=== PATIENT | female | born 1960 | race Caucasian/White ===

== ENCOUNTER 2025-01-04 10:14 | Emergency (ER) | payer OTHER ==
[2025-01-04 11:06] LABS: Absolute Lymphocytes (CBC) 2.9 K/uL (0.7-4.9); Hematocrit 39.4 % (36.0-45.0); Hemoglobin 13.0 g/dL (12.0-15.0); MCH 29.7 pg (27.0-35.0); MCHC 33.1 g/dL (32.0-36.0); MCV 89.7 fL (80-100); MPV 7.6 fL (7.6-11.3); Nucleated RBC Absolute Count 0.0 (0-0); Nucleated Red Blood Cells % 0.1 % (0-0); RBC Red Blood Cell Count 4.39 M/uL (3.86-4.86); Sqamous Epithelial <5 /HPF (None Seen); Urine Crystals Unidentified Few /HPF (None Seen); Urine Culture Reflex Order NOT NEEDED; Urine Microscopic Reflex YN ORDER UMIC; Urine WBC Clump Rare /HPF (None Seen); Urine Yeast (Budding) Trace /HPF (None Seen); White Blood Count 9.10 thou/uL (4.3-10.9)
[2025-01-04 11:24] LABS: ALT/SGPT 28.0 U/L (13-56); AST/SGOT 16.0 U/L (15-37); Albumin 3.6 g/dL (3.4-5.0); Alkaline Phosphatase 76.0 U/L (45-117); Anion Gap 7.6 mEq/L (5.0-15.0); BUN Blood Urea Nitrogen 14.0 mg/dL (7-18); Bilirubin Indirect, Calculated 0.4 mg/dL (0.2-0.8); Globulin 3.6 g/dL (2.3-3.5); Glucose Level 105.0 mg/dL (74-106); Potassium 3.6 mEq/L (3.5-5.1)
[2025-01-04 11:25] LABS: Albumin/Globulin Ratio 1.0 (1.1-1.8); Lipase 32.0 U/L (13-75); Magnesium 2.1 mg/dL (1.6-2.4); NT PRO-BNP 73.0 pg/mL (<125); Troponin High Sensitivity 3.3 pg/mL (<58.9)
--- NOTE | 2025-01-04 11:56 | RAD REPORT ---
EXAMINATION: CT ABDOMEN AND PELVIS WITH CONTRAST CLINICAL INDICATION: Abdominal pain TECHNIQUE: CT abdomen and pelvis was performed, after the administration of 100 cc Isovue-300.. Sagit lory and coronal reconstructions were obtained. One or more of the following dose reduction techniques were used: Automated exposure control, adjustment of the mA and kV according to patient si ze, and iterative reconstruction. Unless otherwise specified, incidental findings do not require dedicated imaging follow-up. [id number]. Oral contrast was not given which limits evaluation of bowel and appendix. COMPARISON: .None FINDINGS: Cholecystectomy Splenic granulomata. The liver, pancreas and adrenals unremarkable 7 mm calculus left kidney. No hydronephrosis. Small left renal cyst. Tiny right renal calculus. No hydronephrosis. Tubal ligation clips. No adnexal mass. No evidence of diverticulitis.. Moderate amount of stool throughout the colon Small umbilical hernia : IMPRESSION: Nonobstructing renal calculi. Moderate amount stool throughout the colon
--- NOTE | 2025-01-04 12:28 | ER ---
Nurse's Notes [facility] Name: Lilli Webster Age: 64 yrs Sex: Female : 1960 Arrival Date: 01/04/2025 Time: 10:14 Bed 18 Private MD: Diagnosis: Other abdominal pain Presentation: 01/04 10:33 Chief complaint: Patient states: starting Saturday she has had RLQ and LLQ pain, me1 intermittent nausea, episodes of sob with exertion, generalized body aches, denies fever. Coronavirus screen: Vaccine status: Patient reports receiving the 2nd dose of the covid vaccine. Ebola Screen: No symptoms or risks identified at this time. Initial Sepsis Screen: Does the patient meet any 2 criteria? No. Patient's initial sepsis screen is negative. Does the patient have a suspected source of infection? No. Patient's initial sepsis screen is negative. Risk Assessment: Do you want to hurt yourself or someone else? Patient reports no desire to harm self or others. Onset of symptoms was January 02, 2025. 10:33 Method Of Arrival: Ambulatory me1 10:33 Acuity: PADMA 3 me1 Historical: - Allergies: 10:35 Sulfa (Sulfonamide Antibiotics); me1 - PMHx: 10:35 hypotension; Hypercholesterolemia; Hypothyroidism; irregular heartbeat; me1 - PSHx: 10:35 Appendectomy; Tonsillectomy; Ligation of fallopian tube; me1 - Immunization history:: Adult Immunizations up to date. - Infectious Disease History:: Denies. - Social history:: Smoking status: Patient denies any tobacco usage or history of. Screenin:06 [facility] ED Fall Risk Assessment (Adult) History of falling in the last 3 months, ar8 including since admission No falls in past 3 months (0 pts) Confusion or Disorientation No (0 pts) Intoxicated or Sedated No (0 pts) Impaired Gait No (0 pts) Mobility Assist Device Used No (0 pt) Altered Elimination No (0 pt) Score/Fall Risk Level 0 - 2 = Low Risk Oriented to surroundings, Maintained a safe environment. Abuse screen: Denies threats or abuse. Nutritional screening: No deficits noted. Tuberculosis screening: No symptoms or risk factors identified. Assessment: 10:45 General: Appears in no apparent distress. Behavior is calm, cooperative. ar8 10:45 Pain: Complains of pain in right lower quadrant and left lower quadrant. Neuro: Level ar8 of Consciousness is awake, alert, obeys commands, Oriented to person, place, time, situation. Cardiovascular: Patient's skin is warm and dry. Respiratory: Airway is patent Respiratory effort is even, unlabored, Respiratory pattern is regular, symmetrical. GI: Abdomen is flat, Bowel sounds present X 4 quads. Abd is soft Abdomen is tender to palpation in right lower quadrant and left lower quadrant Reports lower abdominal pain, nausea. : No signs and/or symptoms were reported regarding the genitourinary system. EENT: No signs and/or symptoms were reported regarding the EENT system. Derm: Skin is intact, Skin is dry, Skin is pink, warm \T\ dry. Skin temperature is warm. Vital Signs: 10:33 BP 121 / 61; Pulse 76; Resp 18; Temp 98.2; Pulse Ox 96% ; Weight 77.11 kg; Height 5 ft. me1 6 in. ; Pain 6/10; 11:06 BP 120 / 69; Pulse 65; Resp 16; Pulse Ox 94% on R/A; ar8 12:00 BP 105 / 67; Pulse 59; Resp 17; Pulse Ox 95% ; ar8 12:44 BP 99 / 57; Pulse 58; Resp 16; Pulse Ox 95% on R/A; Pain 4/10; ar8 10:33 Body Mass Index 27.44 (77.11 kg, 167.64 cm) me1 10:33 Pain Scale: Adult me1 12:44 Pain Scale: Adult ar8 ED Course: 10:15 Patient arrived in ED. mr 10:16 Kathleen Houston MD is Attending Physician. sp3 10:35 Triage completed. me1 10:35 Arm band placed on Patient placed in an exam room. me1 10:42 Santino Cavazos, SHAAN is Primary Nurse. ar8 10:45 Bed in low position. Call light in reach. Side rails up X2. ar8 10:45 Provided Education on: plan of care, diagnostics and estimated wait time. Client placed ar8 on continuous cardiac and pulse oximetry monitoring. NIBP monitoring applied. 10:48 No provider procedures requiring assistance completed. Inserted saline lock: 22 gauge ar8 in left antecubital area, using aseptic technique. Blood collected. Flushed with 10 mL NS. 10:48 EKG done, by ED staff, reviewed by Kathleen Huoston MD. ar8 10:[address] via wheelchair. ar8 11:04 CT Abd/Pelvis - IV Contrast Only In Process Unspecified. EDMS 11:04 Patient moved back from CT. ar8 12:44 IV discontinued, intact, bleeding controlled, No redness/swelling at site. Pressure ar8 dressing applied. Administered Medications: No medications were administered Medication: 11:06 VIS not applicable for this client. ar8 Outcome: 12:27 Discharge ordered by . sp3 12:44 Discharged to home ambulatory, ar8 12:44 Condition: stable 12:44 Discharge instructions given to patient, Instructed on discharge instructions, follow up and referral plans. Demonstrated understanding of instructions, follow-up care, 12:50 Patient left the ED. ar8 Signatures: Dispatcher [employer] EDLA Roxanne Jones, Reg Reg Kathleen Talavera MD MD sp3 Tiara Pollock, SHAAN RN me1 Santino Cavazos RN RN ar8
--- NOTE | 2025-01-04 12:28 | EDPHYS ---
Physician Documentation [facility] Name: Lilli Webster Age: 64 yrs Sex: Female : 1960 Arrival Date: 01/04/2025 Time: 10:14 Bed 18 Private MD: ED Physician Kathleen Houston HPI: 01/04 10:47 This 64 yrs old Female presents to ER via Ambulatory with complaints of Abdominal Pain, sp3 Back Pain, Weakness. 10:47 64-year-old female with history of hyperlipidemia, hypothyroidism presents with lower sp3 abdominal pain over the last 2 to 3 days. She also had some crab legs in [place] which may have made it worse. Pain did precede that dinner. She also states she has had some back spasms and overall just feels weak. 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 She feels like she is severely fatigued. She denies any trauma, headache, fever, URI symptoms, chest pain, shortness of breath, diarrhea, decreased urine output, or any other signs or symptoms on ROS at this time.. Historical: - Allergies: 10:35 Sulfa (Sulfonamide Antibiotics); me1 - PMHx: 10:35 hypotension; Hypercholesterolemia; Hypothyroidism; irregular heartbeat; me1 - PSHx: 10:35 Appendectomy; Tonsillectomy; Ligation of fallopian tube; me1 - Immunization history:: Adult Immunizations up to date. - Infectious Disease History:: Denies. - Social history:: Smoking status: Patient denies any tobacco usage or history of. ROS: 10:49 Constitutional: Negative for fever, chills, and weight loss, Eyes: Negative for injury, sp3 pain, redness, and discharge, ENT: Negative for injury, pain, and discharge, Neck: Negative for injury, pain, and swelling, Cardiovascular: Negative for chest pain, palpitations, and edema, Respiratory: Negative for shortness of breath, cough, wheezing, and pleuritic chest pain, MS/Extremity: Negative for injury and deformity, Skin: Negative for injury, rash, and discoloration, Neuro: Negative for headache, weakness, numbness, tingling, and seizure, Psych: Negative for depression, anxiety, suicide ideation, homicidal ideation, and hallucinations, Allergy/Immunology: Negative for hives, rash, and allergies, Endocrine: Negative for neck swelling, polydipsia, polyuria, polyphagia, and marked weight changes, 10:49 All other systems are negative, Exam: 10:49 Constitutional: This is a well developed, well nourished patient who is awake, alert, sp3 and in no acute distress. Head/Face: Normocephalic, atraumatic. Eyes: Pupils equal round and reactive to light, extra-ocular motions intact. Lids and lashes normal. Conjunctiva and sclera are non-icteric and not injected. Cornea within normal limits. Periorbital areas with no swelling, redness, or edema. Neck: Trachea midline, no thyromegaly or masses palpated, and no cervical lymphadenopathy. Supple, full range of motion without nuchal rigidity, or vertebral point tenderness. No Meningismus. Chest/axilla: Normal chest wall appearance and motion. Nontender with no deformity. No lesions are appreciated. Cardiovascular: Regular rate and rhythm with a normal S1 and S2. No gallops, murmurs, or rubs. Normal PMI, no JVD. No pulse deficits. Respiratory: Lungs have equal breath sounds bilaterally, clear to auscultation and percussion. No rales, rhonchi or wheezes noted. No increased work of breathing, no retractions or nasal flaring. Abdomen/GI: Soft, non-tender, with normal bowel sounds. No distension or tympany. No guarding or rebound. No evidence of tenderness throughout. Back: No spinal tenderness. No costovertebral tenderness. Full range of motion. Skin: Warm, dry with normal turgor. Normal color with no rashes, no lesions, and no evidence of cellulitis. MS/ Extremity: Pulses equal, no cyanosis. Neurovascular intact. Full, normal range of motion. Neuro: Awake and alert, GCS 15, oriented to person, place, time, and situation. Cranial nerves II-XII grossly intact. Motor strength 5/5 in all extremities. Sensory grossly intact. Cerebellar exam normal. Normal gait. Psych: Awake, alert, with orientation to person, place and time. Behavior, mood, and affect are within normal limits. Vital Signs: 10:33 BP 121 / 61; Pulse 76; Resp 18; Temp 98.2; Pulse Ox 96% ; Weight 77.11 kg; Height 5 ft. me1 6 in. ; Pain 6/10; 11:06 BP 120 / 69; Pulse 65; Resp 16; Pulse Ox 94% on R/A; ar8 12:00 BP 105 / 67; Pulse 59; Resp 17; Pulse Ox 95% ; ar8 12:44 BP 99 / 57; Pulse 58; Resp 16; Pulse Ox 95% on R/A; Pain 4/10; ar8 10:33 Body Mass Index 27.44 (77.11 kg, 167.64 cm) me1 10:33 Pain Scale: Adult me1 12:44 Pain Scale: Adult ar8 MDM: 10:28 Medical Screening Exam initiated sp3 10:50 Data reviewed: vital signs, nurses notes, lab test result(s). sp3 10:50 ED course: 64-year-old female with PMH above now with lower abdominal pain and general sp3 malaise. Differential diagnosis includes dehydration, UTI, diverticulitis, other intra-abdominal pathology, among others. I am not highly suspicious of vascular/aorta, [employer] pathology at this time. Workup include CT scan of the abdomen pelvis with IV contrast, general labs, UA, EKG and general supportive care. Vital signs are currently normal. Disposition pending workup and patient course.. 12:26 ED course: Full workup negative including CT. Patient will be sent home with diagnosis sp3 either viral illness or foodborne illness. Patient acknowledges and is grateful for her care. No further intervention or medication or prescription indicated. Patient to follow-up with PCP as needed.. 01/04 10:40 Order name: Basic Metabolic Panel; Complete Time: 11:43 sp3 01/04 10:40 Order name: CBC with Diff; Complete Time: 11:43 sp3 01/04 10:40 Order name: LFT's; Complete Time: 11:43 sp3 01/04 10:40 Order name: Magnesium; Complete Time: 11:43 sp3 01/04 10:40 Order name: NT PRO-BNP; Complete Time: 11:43 sp3 01/04 10:40 Order name: Troponin HS; Complete Time: 11:43 sp3 01/04 10:40 Order name: Lipase; Complete Time: 11:43 sp3 01/04 10:40 Order name: UA Rfx Stew Cult if indicated; Complete Time: 11:43 sp3 01/04 10:40 Order name: CT Abd/Pelvis - IV Contrast Only; Complete Time: 11:59 sp3 01/04 10:40 Order name: Cardiac monitoring; Complete Time: 11:15 sp3 01/04 10:40 Order name: EKG - Nurse/Tech; Complete Time: 11:15 sp3 01/04 10:40 Order name: IV Saline Lock; Complete Time: 11:15 sp3 01/04 10:40 Order name: Labs collected and sent; Complete Time: 11:15 sp3 01/04 10:40 Order name: O2 Per Protocol; Complete Time: 11:15 sp3 01/04 10:40 Order name: O2 Sat Monitoring; Complete Time: 11:15 sp3 Administered Medications: No medications were administered Disposition Summary: 01/04/25 12:27 Discharge Ordered Notes: Location: Home sp3 Condition: Stable sp3 Diagnosis - Other abdominal pain sp3 Followup: sp3 - With: Private Physician - When: Upon discharge from the Emergency Department - Reason: Continuance of care Discharge Instructions: - Discharge Summary Sheet sp3 - Abdominal Pain, Adult sp3 Forms: - Medication Reconciliation Form sp3 - Antibiotic Education sp3 - Prescription Opioid Use sp3 - Patient Portal Instructions sp3 - Leadership Thank You Letter sp3 Signatures: Dispatcher [employer] EDKathleen Potter MD MD sp3 Tiara Pollock RN RN me1 Corrections: (The following items were deleted from the chart) 10:40 10:40 BASIC METABOLIC PANEL+C.LAB.BRZ ordered. EDMS EDMS 10:40 10:40 CBC+H.LAB.BRZ ordered. EDMS EDMS 10:40 10:40 HEPATIC FUNCTION+C.LAB.BRZ ordered. EDMS EDMS 10:40 10:40 MAGNESIUM+C.LAB.BRZ ordered. EDMS EDMS 10:40 10:40 PROBNP+C.LAB.BRZ ordered. EDMS EDMS 10:40 10:40 Troponin High Sensitivity+C.LAB.BRZ ordered. EDMS EDMS 10:40 10:40 LIPASE+C.LAB.BRZ ordered. EDMS EDMS 10:40 10:40 UA Rfx Stew Cult if indicated+U.LAB.BRZ ordered. EDMS EDMS 10:41 10:40 Abdomen Pelvis W Con+CT.RAD.BRZ ordered. EDMS EDMS
[2025-01-04 12:54] VITALS: TEMP 98.2
[2025-01-04 12:57] VITALS: O2SAT 95
[2025-01-04 12:59] VITALS: BP 99/57
== END 2025-01-04 12:50 | disposition home or self-care (01) ==
LOC: ER 10:14
DX: R10.9 Unspecified abdominal pain (principal); R53.1 Weakness; M54.9 Dorsalgia, unspecified; E78.00 Pure hypercholesterolemia, unspecified; E03.9 Hypothyroidism, unspecified; I95.9 Hypotension, unspecified; Z88.2 Allergy status to sulfonamides
CPT/HCPCS: 93005; 85025; 81001; 80048; 36415; 83735; 80076; 84484; 83690; 83880; 74177; 99284; Q9967